=== PATIENT | female | born 1970 | race Caucasian/White ===

== ENCOUNTER 2019-02-28 17:57 | Inpatient (IN) | payer OTHER ==
--- NOTE | 2019-02-28 18:53 | EDM.PDOC ---
ED HPI GENERAL MEDICAL PROBLEM - General Chief Complaint: Lower Extremity Injury/Pain Stated Complaint: SOB - PAIN IN R LEG Time Seen by Provider: 02/28/19 18:45 Source of Information: Reports: Patient History Limitations: Reports: No Limitations (She can) - History of Present Illness INITIAL COMMENTS - FREE TEXT/NARRATIVE: 49-year-old female with right lower leg pain, mostly in the calf up into the popliteal area for the past 3 days. Today she became somewhat short of breath and had a cough and she became concerned that she may have some DVT in the leg. 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 Vitals are stable, O2 sats 98% and pulse 78 . Onset: Gradual Duration: Day(s): (3 days) Location: Reports: Lower Extremity, Right Associated Symptoms: Reports: Cough, Shortness of Breath - Related Data Allergies Allergy/AdvReac Type Severity Reaction Status Date / Time gluten Allergy Airway Verified 02/28/19 22:20 Tightness morphine Allergy Agitation Verified 02/28/19 22:20 Home Meds: Home Meds Albuterol Sulfate [Albuterol Sulfate Hfa] 2 puff INH Q4H PRN 02/28/19 [History] Past Medical History - Past Surgical History GI Surgical History: Reports: Appendectomy, Cholecystectomy Social & Family History - Tobacco Use Smoking Status *Q: Never Smoker Review of Systems - Review of Systems Review Of Systems: See Below Constitutional: Denies: Fever Respiratory: Reports: Shortness of Breath Cardiovascular: Reports: Other (Mild chest tightness on the left anterior chest with breathing) GI/Abdominal: Denies: Abdominal Pain, Nausea, Vomiting Skin: Reports: No Symptoms Neurological: Denies: Dizziness, Headache Psychiatric: Reports: No Symptoms ED EXAM, GENERAL - Physical Exam Exam: See Below Exam Limited By: No Limitations General Appearance: Alert, No Apparent Distress Eye Exam: Bilateral Eye: Normal Inspection Head: Atraumatic Respiratory/Chest: No Respiratory Distress, Lungs Clear Cardiovascular: Regular Rate, Rhythm, No Murmur. No: Tachycardia Extremities: Other (Palpation of lower extremities does reveal some tenderness of the right calf and popliteal area compared to the left. There is no significant distal edema.) Neurological: Alert, Oriented Psychiatric: Normal Affect, Normal Mood Skin Exam: Warm, Dry Course - Vital Signs Last Recorded V/S: Last Vital Signs Temp 99.1 F 02/28/19 22:23 Pulse 76 02/28/19 22:23 Resp 18 02/28/19 22:23 BP 146/76 H 02/28/19 22:23 Pulse Ox 96 02/28/19 22:23 - Orders/Labs/Meds Orders: Active Orders 24 hr Category Date Time Status Calcium Carbonate [Tums] Med 02/28/19 21:43 Once 1,000 mg PO ONETIME ONE Enoxaparin [Lovenox] Med 02/28/19 21:38 Once 100 mg SUBCUT ONETIME ONE Iopamidol [Isovue-370 (76%)] Med 02/28/19 20:30 Active 100 ml IV . DIRECTED Sodium Chloride 0.9% [Normal Saline] 1,000 ml Med 02/28/19 19:45 Active IV ASDIRECTED Sodium Chloride 0.9% [Normal Saline] 100 ml Med 02/28/19 20:30 Active IV ASDIRECTED Sodium Chloride 0.9% [Saline Flush] Med 02/28/19 20:19 Once 10 ml FLUSH ONETIME ONE Medication Orders Calcium Carbonate/Glycine (Tums) 1,000 mg PO ONETIME ONE Stop: 02/28/19 21:44 Last Admin: 02/28/19 21:47 Dose: 1,000 mg Enoxaparin Sodium (Lovenox) 100 mg SUBCUT ONETIME ONE Stop: 02/28/19 21:39 Last Admin: 02/28/19 21:47 Dose: 100 mg Sodium Chloride (Normal Saline) 1,000 mls @ 500 mls/hr IV ASDIRECTED [facility] Last Admin: 02/28/19 20:59 Dose: 500 mls/hr Sodium Chloride (Normal Saline) 100 mls @ 0 mls/hr IV ASDIRECTED [facility] Last Admin: 02/28/19 20:47 Dose: 4 mls/hr Iopamidol (Isovue-370 (76%)) 100 ml IV . DIRECTED [facility] Last Admin: 02/28/19 20:47 Dose: 100 ml Sodium Chloride (Saline Flush) 10 ml FLUSH ONETIME ONE Stop: 02/28/19 20:20 Last Admin: 02/28/19 20:47 Dose: 10 ml Labs: Laboratory Tests 02/28/19 02/28/19 Range/Units 19:51 19:51 WBC 11.2 H (4.5-11.0) K/uL RBC 5.20 (3.30-5.50) M/uL Hgb 15.0 (12.0-15.0) g/dL Hct 47.0 (36.0-48.0) % MCV 90 (80-98) fL MCH 29 (27-31) pg MCHC 32 (32-36) % Plt Count 251 (150-400) K/uL Neut % (Auto) 68 H (36-66) % Lymph % (Auto) 20 L (24-44) % Angelina % (Auto) 10 H (2-6) % Eos % (Auto) 2 (2-4) % Baso % (Auto) 0 (0-1) % Sodium 138 L (140-148) mmol/L Potassium 3.8 (3.6-5.2) mmol/L Chloride 102 (100-108) mmol/L Carbon Dioxide 27 (21-32) mmol/L Anion Gap 12.8 (5.0-14.0) mmol/L BUN 15 (7-18) mg/dL Creatinine 0.8 (0.6-1.0) mg/dL Est Cr Clr Drug Dosing 80.29 mL/min Estimated GFR (MDRD) > 60 (>60) Glucose 98 (74-106) mg/dL Calcium 8.5 (8.5-10.1) mg/dL Meds: Medications Generic Name Dose Route Start Last Admin Trade Name Freq PRN Reason Stop Dose Admin Calcium Carbonate/Glycine 1,000 mg 02/28/19 21:43 02/28/19 21:47 Tums PO 02/28/19 21:44 1,000 mg ONETIME ONE Administration Enoxaparin Sodium 100 mg 02/28/19 21:38 02/28/19 21:47 Lovenox SUBCUT 02/28/19 21:39 100 mg ONETIME ONE Administration Sodium Chloride 1,000 mls @ 500 mls/hr 02/28/19 19:45 02/28/19 20:59 Normal Saline IV 500 mls/hr ASDIRECTED ARNULFO Administration Sodium Chloride 100 mls @ 0 mls/hr 02/28/19 20:30 02/28/19 20:47 Normal Saline IV 4 mls/hr ASDIRECTED ARNULFO Administration KVO Iopamidol 100 ml 02/28/19 20:30 02/28/19 20:47 Isovue-370 (76%) IV 100 ml . DIRECTED ARNULFO Administration Sodium Chloride 10 ml 02/28/19 20:19 02/28/19 20:47 Saline Flush FLUSH 02/28/19 20:20 10 ml ONETIME ONE Administration - Re-Assessments/Exams Free Text/Narrative Re-Assessment/Exam: 02/28/19 19:58 Ultrasound of the extremity did reveal a short segment of DVT in the popliteal area of the right leg. CBC and BMP were obtained and patient was hydrated with normal saline in preparation for a CT angiogram of the chest. 02/28/19 22:31 CBC and BMP were normal, CT the chest confirmed bilateral PE worse on the right than the left. Patient was given 100 mg of subcutaneous Lovenox and arrangements were made to admit the patient to start anticoagulation and monitoring. Dr. Ding kindly agreed to admit the patient Departure - Departure Time of Disposition: 22:00 Disposition: Admitted As Inpatient 65 Clinical Impression: Pulmonary embolism Qualifiers: Pulmonary embolism type: multiple subsegmental (without acute cor pulmonale) Qualified Code(s): I26.94 - Multiple subsegmental pulmonary emboli without acute cor pulmonale DVT (deep venous thrombosis) Qualifiers: DVT location: lower extremity Affected thrombotic vein of extremity: popliteal Chronicity: acute Laterality: right Qualified Code(s): I82.431 - Acute embolism and thrombosis of right popliteal vein - Discharge Information - My Orders Last 24 Hours: My Active Orders 02/28/19 19:45 Sodium Chloride 0.9% [Normal Saline] 1,000 ml IV ASDIRECTED 02/28/19 20:19 Sodium Chloride 0.9% [Saline Flush] 10 ml FLUSH ONETIME ONE 02/28/19 20:30 Iopamidol [Isovue-370 (76%)] 100 ml IV . DIRECTED Sodium Chloride 0.9% [Normal Saline] 100 ml IV ASDIRECTED 02/28/19 21:38 Enoxaparin [Lovenox] 100 mg SUBCUT ONETIME ONE 02/28/19 21:43 Calcium Carbonate [Tums] 1,000 mg PO ONETIME ONE - Assessment/Plan Last 24 Hours: My Active Orders 02/28/19 19:45 Sodium Chloride 0.9% [Normal Saline] 1,000 ml IV ASDIRECTED 02/28/19 20:19 Sodium Chloride 0.9% [Saline Flush] 10 ml FLUSH ONETIME ONE 02/28/19 20:30 Iopamidol [Isovue-370 (76%)] 100 ml IV . DIRECTED Sodium Chloride 0.9% [Normal Saline] 100 ml IV ASDIRECTED 02/28/19 21:38 Enoxaparin [Lovenox] 100 mg SUBCUT ONETIME ONE 02/28/19 21:43 Calcium Carbonate [Tums] 1,000 mg PO ONETIME ONE
--- NOTE | 2019-02-28 20:00 | CRLUS ---
INDICATION: Right leg pain. Dyspnea. TECHNIQUE: Ultrasound venous duplex lower right extremity. Compression venous exam was performed using teran-scale, color Doppler, and spectral Doppler imaging. COMPARISON: None. FINDINGS: Moderate amount of segmental occlusive or nearly occlusive DVT in the right popliteal vein should be considered acute until proven otherwise. Report called to referring clinician at 7:55 p.m. on 02/28/2019. Sonographic imaging demonstrates the right common femoral, deep femoral, superficial femoral, posterior tibial, peroneal and greater saphenous and the contralateral left common femoral veins to be fully compressible with normal color Doppler blood flow. Remainder negative. IMPRESSION: Moderate DVT in the right popliteal vein should be considered acute until proven otherwise. No other DVT in right leg Dictated by John Liu MD @ Feb 28 2019 7:52PM Signed by Dr. John Liu @ Feb 28 2019 7:58PM
[2019-02-28] MEDS: Sodium Chloride 0.9% 10 ML Syringe FLUSH ONE (20:47)
[2019-02-28] MEDS: Sodium Chloride 0.9% 100 ML IV SCH (20:47)
[2019-02-28] MEDS: Iopamidol 755 Mg/ML 100 ML Bottle IV SCH (20:47)
[2019-02-28] MEDS: Sodium Chloride 0.9% 1,000 ML IV SCH (20:59)
--- NOTE | 2019-02-28 21:25 | CRLCT ---
INDICATION: Coughing. TECHNIQUE: CT chest pulmonary angiogram acquired with IV contrast. COMPARISON: None FINDINGS: Cardiovascular structures: There are filling defects in right upper, right middle lobe and right lower lobe pulmonary arteries consistent with emboli. Greatest burden is in the lower lobe. Small filling defects in left upper lobe pulmonary arteries. One of these appears linear suggesting possible chronic embolism. Questionable filling defect in a distal left lower lobe pulmonary artery. No definite bowing of the intraventricular septum. The heart is not enlarged. Thoracic aorta is normal in caliber. No aortic dissection identified. Mediastinum and nohelia: No mass or adenopathy. Prominent but not enlarged right pretracheal lymph node. Lungs: No pneumothorax. No suspicious lung nodules. Small areas of ground-glass opacity in the right lower lobe may reflect infarct. Lungs are otherwise clear. Pleura and pericardium: No effusions. Chest wall and axilla: No mass or adenopathy. Bones: No acute abnormality. No suspicious bone lesion. Upper abdomen: . cholecystectomy. IMPRESSION: 1. Bilateral pulmonary emboli, greater on the right and most pronounced in the right lower lobe. No bowing of the intraventricular septum to suggest right heart strain. 2. Small areas of ground-glass opacity in the right lower lobe may represent infarct given that the right lower lobe has the greatest embolus burden. Findings discussed with Dr. Bledsoe at 9:20 p.m. on 02/28/2019. Dictated by Mj Gomes MD @ 02/28/2019 9:24:31 PM Please note that all CT scans at this facility use dose modulation, iterative reconstruction, and/or weight-based dosing when appropriate to reduce radiation dose to as low as reasonably achievable. Dictated by: Mj Gomes MD @ 02/28/2019 21:24:35 (Electronically Signed)
[2019-02-28] MEDS: Enoxaparin 100 MG/1 ML Syringe SUBCUT ONE (21:47)
[2019-02-28] MEDS: Calcium Carbonate 500 MG Tab.Chew PO ONE (21:47)
[2019-02-28] MEDS ORDERED: Acetaminophen 325 MG Tab PO PRN (22:57)
[2019-02-28] MEDS ORDERED: Calcium Carbonate 500 MG Tab.Chew PO PRN (23:02)
[2019-03-01] MEDS: Benzonatate 100 MG Cap PO PRN (07:22)
[2019-03-01] MEDS: Warfarin 5 MG Tab PO ONE (09:49)
[2019-03-01] MEDS: Enoxaparin 100 MG/1 ML Syringe SUBCUT SCH (09:50)
--- NOTE | 2019-03-01 12:13 | HP ---
IDENTIFYING DATA: Kaley Brown is a 49-year-old female from [place], [place]. CHIEF COMPLAINT: Short of breath, and right leg pain. 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 She had no noted injury. Has not had previous similar difficulties. No leg swelling. No history of localized arthralgias. Over the past 3 days, she has had persistent right calf pain as well as a pressure-like sensation in the chest and shortness of breath with [id number] exertion. Concerned for the potential of acute DVT and possible pulmonary emboli, she presented to the emergency room for evaluation, and on subsequent study with a right leg venous Doppler, was found to have a confirmed popliteal DVT without more proximal venous involvement as well as multiple pulmonary emboli in the right mid, upper, and lower lung, and a suspected small emboli in the left upper lung. She had no evidence for right heart strain by the imaging. She has no noted cardiorespiratory compromise with pulse, blood pressure, and oxygenation remaining normal. She is admitted for continued observation and initiation of anticoagulant therapy. PAST MEDICAL HISTORY: Previous surgeries include appendectomy and cholecystectomy in the remote past. She is a G4, P3, AB1 female, noting no other complications. Specifically, no history of DVT, coagulopathies, eclampsia, -induced hypertension, or gestational diabetes. No other history of significant bleeding or clotting disorders noted by the patient. HABITS: Nonsmoker. Caffeine intake is minimal at 2 to 3 cups of coffee daily. Rare use of alcohol. No other illicit drug use. Denies other [id number] supplemental therapy on a regular basis with p.r.n. use of ibuprofen for mild aching and intermittent use of Tums for dyspepsia. 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 Does have family at home including adolescents. She generally performs ADLs independently. Has no significant limitations on physical activity. FAMILY HISTORY: Notes a younger sister had a single episode of acute DVT. She believes her evaluation did not show significant identified cause, and after a brief period of anticoagulation was weaned off her anticoagulant therapy and has since done well. She denies knowledge of other familial history of coagulopathy. REVIEW OF SYSTEMS: NEUROLOGIC: Glasses worn. No history of stroke, seizures, headaches, or focal weakness. CARDIAC: No history of hypertension, diabetes, congenital heart disease, murmur, rheumatic fever, [place], or congestive heart failure. RESPIRATORY: Environmental allergies with p.r.n. use of albuterol metered-dose inhaler and antihistamines as well as EpiPen, infrequent use. No history of chronic persistent asthmatic lung disease. IMMUNIZATIONS: Including influenza vaccine and tetanus status are current. GASTROINTESTINAL: Intermittent dyspepsia is managed with p.r.n. use of Tums. No history of hepatitis or jaundice. Hepatitis B and hepatitis A vaccine series are completed. She has a history of chronically loose stools attributed to gluten sensitivity. Colonoscopy 10 years ago was otherwise unremarkable. GENITOURINARY: Rises once nightly to void. No history of chronic renal disease. MUSCULOSKELETAL: Intermittent and diffuse nonspecific aching with periodic use of anti- inflammatories. PHYSICAL EXAMINATION: GENERAL: Appearance that of an adult female with frequent dry-sounding cough. VITAL SIGNS: Initial vitals on admission; temperature 99.1 degrees Fahrenheit, pulse 76, respiratory rate 18, blood pressure 146/76, and O2 sats 96% on room air. HEENT: Hearing is intact. No facial asymmetry. Sclerae are anicteric. Oral mucosa is moist. NECK: Brisk carotid pulses. No JVD, adenopathy, thyromegaly, or bruits. LUNGS: Symmetrical, resonant, and non-tachypneic. No pleuritic rubs. No wheezes, rales, or rhonchi heard. HEART: Regular without murmurs, gallops, or rubs noted. ABDOMEN: Soft, nontender, and nondistended. No organomegaly. Good femoral pulses. No CVA pain. GENITOURINARY: Omitted. RECTAL: Omitted. EXTREMITIES: Good radial and posterior tibial pulses. No pitting edema. No superficial varicosities or open ischemic skin changes. She has palpable right calf tenderness. Homans sign is positive on the right and negative on the left. No more proximal palpable pain at the thighs bilaterally. LABORATORY DATA: On admission, WBC 11.2, hemoglobin 15, platelet count 251,000 with 68 segs, 20 lymphocytes, and 10 monos. Sodium 138, potassium 3.8, BUN 15, creatinine 0.8, glucose 98, and calcium 8.5. Right leg venous Doppler revealed a popliteal clot. CT imaging of the chest shows multiple defects in the right chest suggesting emboli to the right upper, mid, and lower lung as well as a suspected small clot in the left upper lung. No other abnormalities evident. IMPRESSION: 1. Right leg deep venous thrombosis with accompanying multiple small pulmonary emboli without hemodynamic compromise. 2. Otherwise well female. PLAN: The patient has received her first dose of Lovenox in the emergency room setting. We will continue with therapeutic dose at 100 mg subcu b.i.d. Additionally, tomorrow morning, we will initiate Coumadin anticoagulant therapy with 5 mg dose and follow up pro time INRs to be monitored. If hemodynamically dynamically stable, consider discharge to home in in 24 to 48 hours, with followup in the outpatient clinic and Coumadin monitoring by [facility] Clinic at [facility] in [place] with her primary caregiver. If respiratory impairment is noted, we will continue to monitor in the inpatient setting. Gianni Ding MD /[id number]
--- NOTE | 2019-03-01 12:22 | DISCH ---
REASON FOR ADMISSION: Previously well 49-year-old female, admitted with recognized right leg popliteal deep vein thrombosis and associated pulmonary emboli. She developed right calf pain approximately 3-1/2 days prior to admission without noted apparent injury. Subsequently, had development of chest pressure, shortness of breath, and nonproductive cough without fever or purulent sputum production. She has no history of hypertension, diabetes, or cardiorespiratory disease. No history of coagulopathy or previous deep vein thrombosis. Currently, on no regular medications. PHYSICAL EXAMINATION: VITAL SIGNS: On admission, vital signs stable. Afebrile. HEENT and NECK: Noncontributory. No JVD. LUNGS: Frequent dry sounding cough. Notes mild subjective dyspnea with ambulation. No pleuritic pain, wheezes, rales, or rhonchi noted. HEART: Regular in rhythm and rate without murmurs or gallops. ABDOMEN: Benign. EXTREMITIES: Warm and pink. No pitting edema. Good arterial pulses. Right calf tenderness to palpation with positive Homans sign. LABORATORY DATA ON ADMISSION: CBC and general chemistries obtained and found to be within normal range. Right leg deep vein thrombosis confirmed the presence of a clot in the popliteal vein without extension to the more proximal venous system. Chest CT with IV contrast revealed multiple small pulmonary emboli in the right upper, mid, and lower lungs as well as suspected small embolic lesion in the left upper lung. No evidence of saddle embolus. HOSPITAL COURSE: Kaley was admitted with acute right leg deep vein thrombosis with accompanying pulmonary emboli. She had no evidence of hemodynamic compromise. During hospital stay, she rested comfortably with vital signs remaining stable. She was placed on subcutaneous Lovenox. On the morning of discharge was provided with first dose of Coumadin. With overall status appearing stable, plans for discharge to home with outpatient followup were made. DISCHARGE INSTRUCTIONS: 1. Discharged to home on 03/01/2019. 2. Condition stable. 3. Activity: Up with light activity as tolerated. She is to remain off work at the present time. 4. Regular diet as tolerated. 5. Follow up with primary caregiver, Ms. Mitzy Molina at [facility] in [place] in 2 day's time for review of cardiorespiratory status and followup [facility], INR with Coumadin therapies initiated. MEDICATIONS: 1. Tylenol 650 mg q.4 hours p.r.n. discomfort. 2. Tessalon Perles 200 mg t.i.d. p.r.n. cough. 3. Lovenox 100 mg subcu b.i.d. through Friday morning with further therapies to be dictated by [employer], INR. 4. Coumadin 5 mg daily until followup with primary caregiver for [employer], INR review. ADMITTING DIAGNOSIS: Right leg deep vein thrombosis with accompanying multiple pulmonary emboli of right and left lung. DISCHARGE DIAGNOSIS: Right leg deep vein thrombosis with accompanying multiple pulmonary emboli of right and left lung.
== END 2019-03-01 12:00 | disposition home or self-care (01) | DRG 299 ==
LOC: JP.ED 17:57 → JP.MS 21:46
PROVIDERS: ADMIT Family Medicine; ATTEND Family Medicine
DX: I82.431 Acute embolism and thrombosis of right popliteal vein (principal); I26.94 Multiple subsegmental thrombotic pulmonary emboli without acute cor pulmonale; Z90.49 Acquired absence of other specified parts of digestive tract; Z88.5 Allergy status to narcotic agent; Z91.048 Other nonmedicinal substance allergy status
CPT/HCPCS: 36415; 71275; 80048; 85025; 85610; 93971-RT; 96360; 96361; 99285-25; A9270-GY; J1650; J7030; Q9967

== ENCOUNTER 2021-06-10 10:28 | Emergency (ER) | payer BC, OTHER ==
[2021-06-10] MEDS ORDERED: Diphtheria,Pertussis(Acell),Tetanus Vaccine 0.5 ML Syringe IM ONE (11:31)
== END 2021-06-10 11:49 | disposition home or self-care (01) ==
LOC: JP.ED 10:28
DX: S61.012A Laceration without foreign body of left thumb without damage to nail, initial encounter (principal); Z72.0 Tobacco use; Z88.5 Allergy status to narcotic agent; Z88.8 Allergy status to other drugs, medicaments and biological substances; Z23 Encounter for immunization; W26.0XXA Contact with knife, initial encounter
CPT/HCPCS: 12001; 90471; 90715; 99282; 99282-25

== ENCOUNTER 2023-12-21 12:03 | Emergency (ER) | payer OTHER | END 2023-12-21 15:16 | disposition home or self-care (01) | LOC: JP.ED 12:03 | DX: M62.838 Other muscle spasm (principal); Z90.49 Acquired absence of other specified parts of digestive tract; Z79.899 Other long term (current) drug therapy; Z88.5 Allergy status to narcotic agent; Z91.018 Allergy to other foods | CPT/HCPCS: 72040; 72040-26; 99283 ==

== ENCOUNTER 2024-05-30 07:26 | Emergency (ER) | payer OTHER | END 2024-05-30 08:39 | disposition home or self-care (01) | LOC: JP.ED 07:26 | DX: S93.402A Sprain of unspecified ligament of left ankle, initial encounter (principal); Z90.49 Acquired absence of other specified parts of digestive tract; Z88.5 Allergy status to narcotic agent; Z88.8 Allergy status to other drugs, medicaments and biological substances; Z79.51 Long term (current) use of inhaled steroids; Z79.01 Long term (current) use of anticoagulants; Z79.899 Other long term (current) drug therapy; W18.42XA Slipping, tripping and stumbling without falling due to stepping into hole or opening, initial encounter | CPT/HCPCS: 73610-26-LT; 73610-LT; 99283 ==

== ENCOUNTER 2024-08-07 13:19 | Emergency (ER) | payer OTHER ==
[2024-08-07] MEDS: Iopamidol 755 Mg/ML 100 ML Bottle IV ONE (14:53)
[2024-08-07] MEDS: Sodium Chloride 0.9% 10 ML Syringe FLUSH ONE (14:53)
[2024-08-07] MEDS: Sodium Chloride 0.9% 100 ML IV ONE (14:53)
[2024-08-07 15:31] LABS: BASOPHILS ABSOLUTE AUTO 0.04 K/uL (0.00-0.10); BASOPHILS PERCENT AUTO 0.4 % (0.1-1.3); EOSINOPHILS ABSOLUTE AUTO 0.23 K/uL (0.00-0.40); EOSINOPHILS PERCENT AUTO 2.2 % (0.0-5.4); HEMATOCRIT 43.3 % (34.3-46.0); HEMOGLOBIN 14.3 g/dL (11.2-15.5); IMMATURE GRAN ABSOLUTE AUTO 0.03 K/uL (0.00-0.23); IMMATURE GRAN PERCENT AUTO 0.3 % (0.0-0.7); LYMPHOCYTES ABSOLUTE AUTO 1.64 K/uL (0.8-3.3); LYMPHOCYTES PERCENT AUTO 15.8 % (11.4-47.7); MEAN CORPUSCULAR HEMOGLOBIN 30.1 pg (31.6-35.5); MEAN CORPUSCULAR VOLUME 91.2 fL (81.4-99.0); MONOCYTES ABSOLUTE AUTO 0.77 K/uL (0.20-0.90); MONOCYTES PERCENT AUTO 7.4 % (3.3-12.6); NEUTROPHILS ABSOLUTE AUTO 7.67 K/uL (1.0-7.6); NEUTROPHILS PERCENT AUTO 73.9 % (40.0-78.1); PLATELET COUNT,PLT 186 K/uL (130-375); RED BLOOD CELL COUNT 4.75 M/uL (3.77-5.24); WHITE BLOOD CELL COUNT,WBC 10.4 K/uL (3.2-11.0)
[2024-08-07 15:44] LABS: A/G RATIO 0.8 (1.2-2.2); ALANINE AMINOTRANSFERASE,ALT 22 U/L (12-78); ALBUMIN 3.1 g/dL (3.4-5.0); ALKALINE PHOSPHATASE 112 U/L (46-116); ANION GAP 10.4 mmol/L (5.0-14.0); ASPARTATE AMNIOTRANSFERASE,AST 15 U/L (15-37); BILIRUBIN TOTAL 0.2 mg/dL (0.2-1.0); BLOOD UREA NITROGEN,BUN 20 mg/dL (7-18); CALCIUM 8.7 mg/dL (8.5-10.1); CARBON DIOXIDE,CO2 27 mmol/L (21-32); CHLORIDE,CL 105 mmol/L (100-108); CREATININE 0.8 mg/dL (0.6-1.0); EST CRCL DRUG DOSING (CG) 77.27 mL/min; ESTIMATED GFR 87 mL/min (>60); GLUCOSE RANDOM 124 mg/dL (74-106); POTASSIUM,K 3.8 mmol/L (3.6-5.2); PROTEIN TOTAL,TP 6.9 g/dL (6.4-8.2); SODIUM,NA 142 mmol/L (140-148)
[2024-08-07 15:49] LABS: TROPONIN I HIGH SENSITIVITY 777.8 pg/mL (<=60.3)
[2024-08-07] MEDS: Heparin Sodium 5,000 Units/ML Vial IVPUSH ONE (16:04)
[2024-08-07] MEDS: Heparin Sodium/D5W 25,000 UNITS/500 ML BAG IV SCH (16:04)
[2024-08-07 16:38] LABS: TROPONIN I HIGH SENSITIVITY 923.6 pg/mL (<=60.3)
[2024-08-07] MEDS: LORazepam 2 MG/ML SDV IVPUSH ONE ×2 (18:31→19:29)
[2024-08-07] MEDS: Calcium Carbonate 500 MG Tab.Chew PO ONE (19:19)
[2024-08-07] MEDS: Morphine 2 MG/ML SYRINGE IVPUSH ONE (19:32)
== END 2024-08-07 19:46 ==
LOC: JP.ED 13:19
DX: I26.94 Multiple subsegmental thrombotic pulmonary emboli without acute cor pulmonale (principal); S99.912D Unspecified injury of left ankle, subsequent encounter; Z90.49 Acquired absence of other specified parts of digestive tract; Z88.5 Allergy status to narcotic agent; Z91.018 Allergy to other foods; Z79.51 Long term (current) use of inhaled steroids; Z79.01 Long term (current) use of anticoagulants; Z79.899 Other long term (current) drug therapy; X58.XXXD Exposure to other specified factors, subsequent encounter
CPT/HCPCS: 36415; 71275; 73610; 80053; 83880; 84484; 85025; 85730; 93005; 93010; 96365; 96366; 96374; 96375; 99291; 99292; A9270; J1644; J2060; Q9967